=== PATIENT | female | born 1995 | race American Indian/Alaskan Native ===

== ENCOUNTER 2021-09-16 15:13 | Emergency (ER) | payer SELFPAY ==
[2021-09-16] MEDS ORDERED: SODIUM CHLORIDE 0.9% 1000 ML 1,000 ML IV ONE (16:03)
[2021-09-16 16:15] LABS: HCG Qualitative,Urine Negative (Negative)
[2021-09-16 16:16] LABS: Basophils % (Auto) 0.2 % (0.0-1.8); Eosinophils % (Auto) 0.1 % (0.0-4.3); Hematocrit 43.2 % (30.3-42.9); Hemoglobin 14.1 gm/dl (10.1-14.3); Lymphocytes % (Auto) 5.8 % (13.4-35.0); Mean Corpuscular HGB Conc 33 % (30-34); Mean Corpuscular Volume 86 fl (79-97); Monocytes % (Auto) 6.1 % (0.0-7.3); Platelet Count 400 K/mm3 (140-440); Red Blood Count 5.01 M/mm3 (3.65-5.03); Red Cell Distribution Width 14.1 % (13.2-15.2)
[2021-09-16 16:19] LABS: Bacteria,Urine 1+ /HPF (Negative); Bilirubin,Urine NEG (Negative); Blood,Urine SM (Negative); Color,Urine Yellow (Yellow); Mucus,Urine 3+ /HPF; Urobilinogen,Urine < 2.0 mg/dL (<2.0)
[2021-09-16 16:22] LABS: Amphetamine Screen,Urine Negative; Benzodiazepines Screen,Urine Negative; Methadone Screen,Urine Negative; Opiate Screen,Urine Negative
[2021-09-16 16:24] LABS: Alanine Aminotransferase 16 units/L (7-56); Albumin 5.1 g/dL (3.9-5); BUN/Creatinine Ratio 12; Blood Urea Nitrogen 12 mg/dL (7-17); Calcium 10.3 mg/dL (8.4-10.2); Hemolysis Index 5
[2021-09-16 16:26] LABS: INR 0.97 (0.87-1.13)
[2021-09-16 16:38] LABS: Cannabinoid Screen,Urine Positive; Cocaine Screen,Urine Positive
--- NOTE | 2021-09-16 16:40 | XRay Report ---
CHEST 1 VIEW 09/16/2021 3:32 PM INDICATION / CLINICAL INFORMATION: Altered Mental Status. COMPARISON: None available. FINDINGS: SUPPORT DEVICES: None. HEART / MEDIASTINUM: The heart size and pulmonary vasculature are normal. LUNGS / PLEURA: No significant pulmonary or pleural abnormality. No pneumothorax. ADDITIONAL FINDINGS: No significant additional findings. IMPRESSION: No acute findings. There is no evidence of aspiration pneumonia. Signer Name: Brett Lopez MD Signed: 09/16/2021 4:35 PM Workstation Name: [id number]
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
[2021-09-17 06:23] VITALS: BP 107/73
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
== END 2021-09-17 12:30 | disposition home or self-care (01) ==
LOC: ED 15:13 → EEVIPCON 15:13 → ED 09-17 12:30
DX: R46.1 Bizarre personal appearance (principal); Z79.899 Other long term (current) drug therapy
CPT/HCPCS: 36415; 71045; 80053; 80307; 81001; 81025; 82550; 85025; 85610; 87086; 96360; 99285; J7030; Q0162

== ENCOUNTER 2021-09-17 12:41 | Emergency (ER) | payer SELFPAY ==
[2021-09-17 14:23] LABS: Basophils % (Auto) 0.3 % (0.0-1.8); Eosinophils # (Auto) 0.1 K/mm3 (0.0-0.4); Hematocrit 43.8 % (30.3-42.9); Hemoglobin 14.1 gm/dl (10.1-14.3); Lymphocytes # (Auto) 1.7 K/mm3 (1.2-5.4); Mean Corpuscular HGB Conc 32 % (30-34); Mean Corpuscular Volume 86 fl (79-97); Monocytes # (Auto) 0.6 K/mm3 (0.0-0.8); Monocytes % (Auto) 7.5 % (0.0-7.3); Platelet Count 378 K/mm3 (140-440); Red Cell Distribution Width 13.9 % (13.2-15.2)
[2021-09-17 14:37] LABS: Alanine Aminotransferase 13 units/L (7-56); Albumin 4.1 g/dL (3.9-5); BUN/Creatinine Ratio 15; Blood Urea Nitrogen 15 mg/dL (7-17); Calcium 9.2 mg/dL (8.4-10.2); Hemolysis Index 4
--- NOTE | 2021-09-17 16:02 | Emergency Department Report ---
HPI - General Chief Complaint: Psych Time Seen by Provider: 09/17/21 14:11 - HPI HPI: Room 12 The patient is a 26-year-old female present with a chief complaint of suicidal ideation. The patient was just discharged from this ED this morning. The patie nt states when she was discharged she walked across the street and began having suicidal ideations. Patient states she is having thoughts of jumping in front of a car so she came back to the emergency department. ED Past Medical Hx - Past Medical History Additional medical history: cocaine, substance abuse - Surgical History Past Surgical History?: No - Family History Family history: no significant - Social History Smoking Status: Current Some Day Smoker Substance Use Type: Cocaine, Marijuana - Medications Home Medications: Home Medications Medication Instructions Recorded Confirmed Last Taken Type Sulfamethoxazole/Trimethoprim 1 each PO BID #6 09/17/21 Unknown Rx [Bactrim DS TAB] ED Review of Systems ROS: Stated complaint: SUICIDAL Other details as noted in HPI Constitutional: no symptoms reported Eyes: denies: eye pain ENT: denies: throat pain Respiratory: no symptoms reported Cardiovascular: denies: chest pain Endocrine: no symptoms reported Gastrointestinal: denies: abdominal pain Genitourinary: denies: dysuria Musculoskeletal: denies: back pain Neurological: denies: headache Psychiatric: suicidal thoughts Physical Exam - Physical Exam Vital Signs: Vital Signs 09/17/21 09/17/21 12:51 13:20 Temperature 98.4 F Pulse Rate 85 Respiratory 12 Rate Blood Pressure 116/70 [Right] O2 Sat by Pulse 97 98 Oximetry Physical Exam: GENERAL: The patient is well-developed well-nourished female sleeping on stretcher not appearing to be in acute distress. [] HEENT: Normocephalic. Atraumatic. Extraocular motions are intact. Patient has moist mucous membranes. NECK: Supple. Trachea midline CHEST/LUNGS: Clear to auscultation. There is no respiratory distress noted. HEART/CARDIOVASCULAR: Regular. There is no tachycardia. There is no gallop rub or murmur. ABDOMEN: Abdomen is soft, nontender. Patient has normal bowel sounds. There is no abdominal distention. SKIN: There is no rash. There is no edema. There is no diaphoresis. NEURO: The patient is asleep but easily awakened to become alert and oriented. The patient is cooperative. The patient has no focal neurologic deficits. The patient has normal speech. GCS 15 MUSCULOSKELETAL: There is no evidence of acute injury. ED Course Vital Signs 09/17/21 09/17/21 12:51 13:20 Temperature 98.4 F Pulse Rate 85 Respiratory 12 Rate Blood Pressure 116/70 [Right] O2 Sat by Pulse 97 98 Oximetry ED Medical Decision Making - Lab Data Result diagrams: 09/17/21 13:58 09/17/21 13:58 Laboratory Tests 09/17/21 09/17/21 09/17/21 13:58 13:58 13:58 WBC 8.6 RBC 5.10 H Hgb 14.1 Hct 43.8 H MCV 86 MCH 28 MCHC 32 RDW 13.9 Plt Count 378 Lymph % (Auto) 20.0 Cobb % (Auto) 7.5 H Eos % (Auto) 1.0 Baso % (Auto) 0.3 Lymph # (Auto) 1.7 Cobb # (Auto) 0.6 Eos # (Auto) 0.1 Baso # (Auto) 0.0 Seg Neutrophils % 71.2 H Seg Neutrophils # 6.1 Sodium 138 Potassium 3.5 L Chloride 103.5 Carbon Dioxide 23 Anion Gap 15 BUN 15 Creatinine 1.0 Estimated GFR > 60 BUN/Creatinine Ratio 15 Glucose 114 H Calcium 9.2 Total Bilirubin 0.50 AST 18 ALT 13 Alkaline Phosphatase 66 Total Protein 7.5 Albumin 4.1 Albumin/Globulin Ratio 1.2 TSH 0.599 - Differential Diagnosis Suicidal ideation, malingering Critical care attestation.: If time is entered above; I have spent that time in minutes in the direct care of this critically ill patient, excluding procedure time. ED Disposition Clinical Impression: Substance abuse, Suicidal ideation Disposition: [address] [place] [address] Is pt being admited?: No Does the pt Need Aspirin: No Condition: Stable Referrals: PRIMARY CARE, [Primary Care Provider] - 3-5 Days
--- NOTE | 2021-09-18 11:36 | Consultation ---
History of Present Illness - Reason for Consult Consult date: 09/18/21 Reason for consult: Suicidal ideation - History of Present Psychiatric Illness ED Note: The patient is a 26-year-old female present with a chief complaint of suicidal ideation. The patient was just discharged from this ED this morning. The patient states when she was discharged she walked across the street and began having suicidal ideations. Patient states she is having thoughts of jumping in front of a car so she came back to the emergency department. The patient is a 26 year old female with history of Polysubstance Abuse. The patient is calm, alert and oriented x3. They patient states she was admitted due to " I was under the influence of drugs." She reports abusing alcohol, marijuana and cocaine for the past 5 years. She endorses suicidal ideation with no plan. She admits having auditory hallucinations " voices saying to go in front of a moving car." PAST PSYCHIATRIC HISTORY Diagnoses: Denies Suicide attempts or Self-harm behavior: Denies Prior psychiatric hospitalizations: Denies Substance Abuse history: Polysubstance Abuse Previous psychiatric medications tried:Denies Outpatient treatment: Denies SOCIAL HISTORY Marital Status: Single Living Arrangements: with family Employment Status: Unemployed Access to guns/weapons: Denies Education: 12th grade History of abuse: Denies Legal History: Denies ROS Constitutional: Negative for weight loss EMT: Respiratory: Negative for cough or hemoptysis All other systems reviewed and are negative MENTAL STATUS EXAMINATION General Appearance: Dressed appropriately. Behavior: Calm and cooperative. Good eye contact. Mood: okay Affect: Congruent to stated mood Speech: Normal tone and pace Thought Process: Goal oriented Thought Content: Suicidal Suicidal Ideation:Yes Homicidal Ideation: Denies Hallucinations: Auditory Delusions: None elicited Insight and Judgment: Limited Memory/Cognition: Limited Assessment and Plan (1) Polysubstance Abuse with Substance Induced Mood Treatment Plan 1013 No medications prescribed Risks, benefits and alternatives of medications discussed with the patient, questions answered and consent obtained from patient. PSYCHOTHERAPY: Supportive psychotherapy provided MEDICAL: Per primary team DELIRIUM PRECAUTIONS: Please re-orient patient frequently, keep lights on during the day, and minimize benzodiazepines and opiates as these medications could worsen patient's confusion. 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 Will follow. Thank you for the consult. Please contact with any questions and/or concerns. Case discussed with Dr. Guevara who agrees with current disposition Medications and Allergies Medications and Allergies Allergies Allergy/AdvReac Type Severity Reaction Status Date / Time No Known Allergies Allergy Verified 09/16/21 15:17 Home Medications Medication Instructions Recorded Confirmed Last Taken Type Sulfamethoxazole/Trimethoprim 1 each PO BID #6 09/17/21 Unknown Rx [Bactrim DS TAB] Mental Status Exam - Vital signs Last Vital Signs Temp 98.2 F 09/18/21 08:36 Pulse 62 09/18/21 08:36 Resp 18 09/18/21 08:36 BP 120/76 09/18/21 08:36 Pulse Ox 99 09/18/21 08:42 Results Result Diagrams: 09/17/21 13:58 09/17/21 13:58 Abnormal lab results 09/17/21 09/17/21 Range/Units 13:58 13:58 RBC 5.10 H (3.65-5.03) M/mm3 Hct 43.8 H (30.3-42.9) % [facility] % (Auto) 7.5 H (0.0-7.3) % Seg Neutrophils % 71.2 H (40.0-70.0) % Potassium 3.5 L (3.6-5.0) mmol/L Glucose 114 H (65-100) mg/dL All other labs normal.
--- NOTE | 2021-09-18 12:09 | Event Note ---
Date: 09/18/21 S: No events reported overnight O: Vital Signs - 8 hr 09/18/21 09/18/21 08:36 08:42 Temperature 98.2 F Pulse Rate 62 Respiratory 18 Rate Blood Pressure 120/76 [Right] O2 Sat by Pulse 99 99 Oximetry A: Polysubstance abuse with substance-induced mood disorder/suicidal ideation PE: 1013/awaiting inpatient psych
[2021-09-18 20:48] VITALS: BP 110/75
--- NOTE | 2021-09-19 09:22 | Progress Note ---
Subjective - Reason for Consult Consult date: 09/19/21 Reason for consult: SI - Chief Complaint Chief complaint: The patient was seen this morning. She reports doing well. She reports sleep and appetite as good. The patient denies any current suicidal/homicidal ideation and denies hallucinations. ROS Constitutional: Negative for weight loss EMT: Respiratory: Negative for cough or hemoptysis All other systems reviewed and are negative MENTAL STATUS EXAMINATION General Appearance: Dressed appropriately. Behavior: Calm and cooperative. Good eye contact. Mood: "good" Affect: Congruent to stated mood Speech: Normal tone and pace Thought Process: Goal oriented Thought Content: Denies Suicidal Ideation:Denies Homicidal Ideation: Denies Hallucinations: Denies Delusions: None elicited Insight and Judgment: Limited Memory/Cognition: Limited Assessment and Plan (1) Polysubstance Abuse with Substance Induced Mood Treatment Plan DC 1013 No medications prescribed Risks, benefits and alternatives of medications discussed with the patient, questions answered and consent obtained from patient. PSYCHOTHERAPY: Supportive psychotherapy provided MEDICAL: Per primary team DELIRIUM PRECAUTIONS: Please re-orient patient frequently, keep lights on during the day, and minimize benzodiazepines and opiates as these medications could worsen patient's confusion. 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 Tabulating Machine Mechanic will provide patient with safety plan. Will sign off. Thank you for the consult. Please contact with any questions and/or concerns. Case discussed with Dr. Guevara who agrees with current disposition Medications and Allergies Mental Status Exam - Vital signs Last Vital Signs Temp 98.9 F 09/18/21 20:46 Pulse 60 09/18/21 20:46 Resp 16 09/18/21 20:46 BP 110/75 09/18/21 20:46 Pulse Ox 98 09/18/21 20:46
== END 2021-09-19 12:45 | disposition home or self-care (01) ==
LOC: ED 12:41
DX: F19.10 Other psychoactive substance abuse, uncomplicated (principal); R45.851 Suicidal ideations; F17.200 Nicotine dependence, unspecified, uncomplicated; F12.90 Cannabis use, unspecified, uncomplicated
CPT/HCPCS: 36415; 80053; 84443; 85025; 99284